=== PATIENT | female | born 1950 | race Caucasian/White ===

== ENCOUNTER → 2016-10-16 | Outpatient (REF) | payer OTHER | LOC: M LAB REF 16:39 | PROVIDERS: ATTEND Obstetrics & Gynecology | DX: R32 Unspecified urinary incontinence (principal) ==

== ENCOUNTER → 2017-03-10 | Outpatient (CLI) | payer OTHER ==
--- NOTE | 2017-03-12 13:14 | HOLTMON ---
[facility] Test Date: 2017-03-10 Pat Name: MARYSE MUÑOZ Department: Room: - Gender: Manager Lighting: RED GARNER : 1950 Requested By: Yue Kendall Order Number: [id number] Reading MD: Don Magana Interpretive Statements Patient had 24 hour Holter monitor without significant artifact. Minimum heart rate was 51 bpm, with a maximum of 107 bpm. Average rate was 68 bpm. Underlying rhythm was sinus. There were no significant pauses. There was a single beat of ventricular ectopy. There were 61 supraventricular beats, without runs. No diary events were recorded. There is no indication of an electrical cause of syncope based on this study. If further work-up is clinically indicated consider an event recorder or implanted loop recorder. Electronically Signed On 03-12-2017 13:14:33 EDT by Don Magana
== END ==
LOC: M EKG 12:12
PROVIDERS: ATTEND Registered Nurse
DX: R55 Syncope and collapse (principal)

== ENCOUNTER 2023-12-01 15:09 | Observation (INO) | payer MEDICARE, SELFPAY ==
[~2023-12-01] VITALS: Ht 157.5 cm; Wt 94.6 kg
[2023-12-01] MEDS ORDERED: GLUCOSE 4 GM CHEW PO PRN (17:20)
[2023-12-01] MEDS ORDERED: GLUCAGON INJ 1MG VIAL SC PRN (17:20)
[2023-12-01] MEDS: DEXTROSE 50% 50ML SYRINGE IV STA (17:21)
[2023-12-01 17:24] VITALS: BP 168/62; TEMP 96.6; O2SAT 100
[2023-12-01] MEDS: INSULIN LISPRO (NovoLOG) PER UNIT SC SCH ×2 (17:30→20:06)
[2023-12-01 18:23] LABS: IONIZED CALCIUM 4.4 MG/DL (4.5-5.3)
[2023-12-01 18:33] LABS: BASO % 0.7 % (0.0-1.0); EOS # 0.1 10^3/uL (0.0-0.5); EOS % 2.2 % (0.0-3.0); HEMATOCRIT 35.2 % (36.0-47.0); HEMOGLOBIN 11.5 g/dl (12.0-15.5); LYMPH # 1.7 10^3/uL (1.5-5.0); LYMPH % 31.8 % (24.0-44.0); MEAN CORPUSCULAR HEMOGLOBIN 30.2 pg (27.0-33.0); MEAN CORPUSCULAR HGB CONC 32.7 g/dl (32.0-36.5); MEAN CORPUSCULAR VOLUME 92.4 fl (80.0-96.0); MONO # 0.6 10^3/uL (0.0-0.8); NEUTROPHILS # 2.9 10^3/uL (1.5-8.5); NEUTROPHILS % 54.1 % (36.0-66.0); RED BLOOD COUNT 3.81 10^6/uL (4.00-5.40); WHITE BLOOD COUNT 5.4 10^3/uL (4.0-10.0)
[2023-12-01] MEDS ORDERED: hydroCHLOROthiazide 12.5 MG CAPSULE PO SCH (18:35)
[2023-12-01 18:55] LABS: ALBUMIN 3.2 G/DL (3.2-5.2); ALKALINE PHOSPHATASE 43 U/L (46-116); ALT/SGPT 22 U/L (7.0-40); AST/SGOT 20 U/L (<34); BILIRUBIN,TOTAL 0.4 MG/DL (0.3-1.2); BLOOD UREA NITROGEN 17 MG/DL (9-23); CALCIUM LEVEL 9.8 MG/DL (8.3-10.6); CARBON DIOXIDE LEVEL 27 MMOL/L (20-31); CHLORIDE LEVEL 102 MMOL/L (98-107); CREATININE FOR GFR 0.71 MG/DL (0.55-1.30); GLOMERULAR FILTRATION RATE > 60.0 (>39); GLUCOSE, FASTING 158 MG/DL (74-106); MAGNESIUM LEVEL 1.7 MG/DL (1.8-2.4); POTASSIUM SERUM 4.1 MMOL/L (3.5-5.1); SODIUM LEVEL 136 MMOL/L (136-145); TOTAL PROTEIN 6.3 G/DL (5.7-8.2)
[2023-12-01 19:03] LABS: PROLACTIN 4.44 NG/ML
[2023-12-01 19:04] LABS: MB/CK RELATIVE INDEX 1.05 (< OR =4); PROCALCITONIN 0.08 ng/ml
[2023-12-01 19:07] LABS: PLATELET COUNT, AUTOMATED 154 10^3/uL (150-450)
[2023-12-01 19:51] LABS: AMPHETAMINES LEVEL URINE NEGATIVE (NEGATIVE); BARBITURATES URINE NEGATIVE (NEGATIVE); BENZODIAZEPINES URINE NEGATIVE (NEGATIVE); CANNABINOIDS URINE NEGATIVE (NEGATIVE); COCAINE METABOLITE URINE NEGATIVE (NEGATIVE); METHADONE URINE NEGATIVE (NEGATIVE); OPIATES URINE NEGATIVE (NEGATIVE); PHENCYCLIDINE URINE NEGATIVE (NEGATIVE)
[2023-12-01] MEDS: DEXTROSE 50% 50ML SYRINGE IV PRN (19:53)
[2023-12-01 20:13] VITALS: BP 188/80; TEMP 96.1; O2SAT 97
[2023-12-01 20:43] VITALS: BP 158/64
[2023-12-01] MEDS: ACETAMINOPHEN TAB 650MG DOSE (2X325MG) PO ONE (23:18)
[2023-12-01] MEDS ORDERED: METO50TA7 PO (23:32)
[2023-12-01] MEDS ORDERED: MULT-40 PO (23:32)
[2023-12-01] MEDS ORDERED: C 50TAB PO (23:32)
[2023-12-01] MEDS ORDERED: VITA100093 PO (23:32)
[2023-12-01] MEDS ORDERED: NOVOINJ SC (23:32)
[2023-12-01] MEDS ORDERED: FAMO40TA3 PO (23:32)
[2023-12-01] MEDS ORDERED: VITA500T40 PO (23:32)
[2023-12-01] MEDS ORDERED: HYDR12CA PO (23:32)
[2023-12-01] MEDS ORDERED: VITA-55 PO (23:32)
[2023-12-01] MEDS ORDERED: BIMA01SOL OU (23:32)
[2023-12-01] MEDS ORDERED: SYNT100T PO (23:32)
[2023-12-01] MEDS ORDERED: TIZA1TAB12 PO (23:32)
[2023-12-01] MEDS ORDERED: POTA10TA67 PO (23:32)
[2023-12-01] MEDS ORDERED: LISI20TA33 PO (23:32)
[2023-12-01] MEDS ORDERED: FLON1SPR NARES (23:32)
[2023-12-01] MEDS ORDERED: ROSU20TA61 PO (23:32)
[2023-12-01] MEDS ORDERED: HOME MED LIST COMPLETE! XX SCH (23:35)
[2023-12-01] MEDS: INSULIN LISPRO (NovoLOG) PER UNIT SC STA (23:55)
[2023-12-01] MEDS: LEVEMIR (INSULIN DETEMIR) 1 UNITS/0.01ML SC ONE (23:55)
[2023-12-01 23:59] VITALS: BP 180/76; TEMP 97.1; O2SAT 100
[2023-12-02] VITALS (10 sets, daily range): BP systolic 90–190; BP diastolic 40–78; TEMP 96.8–97.9; O2SAT 96–99
[2023-12-02] MEDS: MAG SULF 1GM/100ML (MAG RUN) 1 GM in IV 1 EA IV SCH (00:16)
[2023-12-02] MEDS: METOPROLOL TART 50 MG TAB PO ONE (00:39)
[2023-12-02] MEDS: ROSUVASTATIN 10 MG TAB (CRESTOR) PO ONE (00:39)
[2023-12-02] MEDS: OMEPRAZOLE 20MG CAP PO ONE (00:41)
[2023-12-02] MEDS: KETOROLAC 30 MG/ML 1ML VIAL IV ONE (00:41)
[2023-12-02 00:43] LABS: CK-MB VALUE MASS < 1.0 NG/ML (<3.6)
[2023-12-02 00:45] LABS: CPK CREATINE PHOSPHOKINASE 84 U/L (34-145); MB/CK RELATIVE INDEX 1.19 (< OR =4)
[2023-12-02 00:50] LABS: ACETONE/KETONE 0.78 MMOL/L (0.02-0.27)
[2023-12-02 00:53] LABS: BLOOD UREA NITROGEN 19 MG/DL (9-23); CALCIUM LEVEL 9.8 MG/DL (8.3-10.6); CARBON DIOXIDE LEVEL 26 MMOL/L (20-31); CHLORIDE LEVEL 102 MMOL/L (98-107); CREATININE FOR GFR 0.67 MG/DL (0.55-1.30); GLOMERULAR FILTRATION RATE > 60.0 (>39); GLUCOSE, FASTING 408 MG/DL (74-106); MAGNESIUM LEVEL 1.8 MG/DL (1.8-2.4); POTASSIUM SERUM 4.8 MMOL/L (3.5-5.1); SODIUM LEVEL 134 MMOL/L (136-145)
[2023-12-02] MEDS ORDERED: ISOVUE-370 76% 100ML VIAL As Ordered ONE (01:02)
[2023-12-02] MEDS ORDERED: hydrALAZINE 20MG/ML 1ML VIAL IV ONE (02:10)
[2023-12-02] MEDS: INSULIN LISPRO (NovoLOG) PER UNIT SC ONE ×2 (02:28→20:34)
[2023-12-02] MEDS: LEVEMIR (INSULIN DETEMIR) 1 UNITS/0.01ML SC ONE (02:28)
[2023-12-02] MEDS: MAGNESIUM OXIDE 400MG TAB (MAG-OX) PO ONE (04:11)
[2023-12-02] MEDS: **hydrALAZINE** 10 MG TAB PO ONE (04:12)
[2023-12-02] MEDS: ACETAMINOPHEN 500 MG TAB PO ONE (04:40)
[2023-12-02 05:33] LABS: BLOOD UREA NITROGEN 20 MG/DL (9-23); CALCIUM LEVEL 9.6 MG/DL (8.3-10.6); CARBON DIOXIDE LEVEL 28 MMOL/L (20-31); CHLORIDE LEVEL 104 MMOL/L (98-107); CREATININE FOR GFR 0.78 MG/DL (0.55-1.30); GLOMERULAR FILTRATION RATE > 60.0 (>39); GLUCOSE, FASTING 249 MG/DL (74-106); MAGNESIUM LEVEL 1.9 MG/DL (1.8-2.4); POTASSIUM SERUM 4.3 MMOL/L (3.5-5.1); SODIUM LEVEL 136 MMOL/L (136-145)
[2023-12-02] MEDS: LEVOTHYROXINE 100MCG TABLET (0.1MG) PO SCH (06:09)
[2023-12-02] MEDS: ASPIRIN 81MG CHEW TABLET PO SCH (08:11)
[2023-12-02] MEDS: ENOXAPARIN 40MG/0.4ML SYRINGE (J1650 PER 10MG) SC SCH (08:11)
[2023-12-02] MEDS: METOPROLOL TART 50 MG TAB PO SCH (08:14)
[2023-12-02] MEDS: ROSUVASTATIN 10 MG TAB (CRESTOR) PO SCH (20:33)
[2023-12-02] MEDS: AMITRIPTYLINE 10MG TABLET PO SCH (20:34)
[2023-12-03 03:23] VITALS: BP 168/70; TEMP 97.7; O2SAT 97
[2023-12-03 05:14] LABS: BLOOD UREA NITROGEN 28 MG/DL (9-23); CALCIUM LEVEL 9.4 MG/DL (8.3-10.6); CARBON DIOXIDE LEVEL 26 MMOL/L (20-31); CHLORIDE LEVEL 104 MMOL/L (98-107); CREATININE FOR GFR 0.82 MG/DL (0.55-1.30); GLOMERULAR FILTRATION RATE > 60.0 (>39); GLUCOSE, FASTING 306 MG/DL (74-106); SODIUM LEVEL 135 MMOL/L (136-145)
[2023-12-03] MEDS: INSULIN LISPRO (NovoLOG) PER UNIT SC SCH ×3 (06:36→09:05)
[2023-12-03] MEDS ORDERED: GLUCAGON INJ 1MG VIAL SC PRN (07:00)
[2023-12-03] MEDS ORDERED: DEXTROSE 50% 50ML SYRINGE IV PRN (07:00)
[2023-12-03] MEDS ORDERED: GLUCOSE 4 GM CHEW PO PRN (07:00)
[2023-12-03 08:00] VITALS: BP 143/68; TEMP 97.5; O2SAT 98
[2023-12-03 09:06] VITALS: BP 143/68
[2023-12-03] MEDS ORDERED: AMIT25TA19 PO (10:55)
[2023-12-03] MEDS ORDERED: AMIT10TA7 PO (10:55)
[2023-12-03] MEDS ORDERED: INSULIN LISPRO (NovoLOG) PER UNIT SC SCH (21:00)
== END 2023-12-03 11:58 | disposition home or self-care (01) ==
LOC: M PCU 17:00
PROVIDERS: ADMIT General Practice; ATTEND General Practice
DX: R42 Dizziness and giddiness (principal); E10.649 Type 1 diabetes mellitus with hypoglycemia without coma; Z96.41 Presence of insulin pump (external) (internal); I10 Essential (primary) hypertension; E03.9 Hypothyroidism, unspecified; E78.5 Hyperlipidemia, unspecified; Z86.73 Personal history of transient ischemic attack (TIA), and cerebral infarction without residual deficits; H81.10 Benign paroxysmal vertigo, unspecified ear; Z88.0 Allergy status to penicillin; Z79.4 Long term (current) use of insulin; Z79.899 Other long term (current) drug therapy
CPT/HCPCS: 36415; 70450; 70496; 70498; 70551; 71046; 80048; 80053; 80307; 81001; 82010; 82330; 82550; 82553; 82947; 83735; 84145; 84146; 84484; 85025; 85652; 86140; 87086; 93005; 95819; 96372; 96374; 96375; 96376; 97116; 97161; 97530; G0378; G0379; G0399; J1650; J1815; J1885; J3475; Q9967